=== PATIENT | female | born 1970 | race Caucasian/White ===

== ENCOUNTER → 2019-12-01 09:15 | Outpatient (CLI) | payer OTHER ==
[2012-09-07 02:39] VITALS: BMI 65.3
== END | disposition home or self-care (01) ==
LOC: D.NM 09:15
PROVIDERS: ATTEND Internal Medicine Gastroenterology
DX: R10.9 Unspecified abdominal pain (principal); R12 Heartburn; R11.2 Nausea with vomiting, unspecified